=== PATIENT | male | born 1965 | race Caucasian/White ===

== ENCOUNTER → 2017-10-13 | Outpatient (CLI) | payer BC ==
--- NOTE | 2017-10-13 10:36 | CT ---
EXAMINATION TYPE: CT brain wo/w con DATE OF EXAM: 10/13/2017 COMPARISON: NONE HISTORY: Fourth trochlear nerve palsy CT DLP: 2180.8 mGycm, Automated exposure control for dose reduction was used. CONTRAST: Patient injected with 100 mL of Isovue 300. CT of the brain is performed utilizing 3 mm thick sections through the posterior fossa and 3 mm thick sections through the remaining calvarium. Study is performed within 24 hours of arrival to the hospital. No abnormal hyperdensity is present to suggest an acute intracranial hemorrhage. No mass lesion is evident. No acute infarcts are evident. Ventricles and sulci are appropriate for the patient age. No abnormal enhancement is evident. Paranasal sinuses and mastoid air cells within the [id number] are clear. IMPRESSIONS: 1. Normal pre and postcontrast CT brain.
== END | disposition home or self-care (01) ==
LOC: RADCTMAIN 07:20
PROVIDERS: ATTEND Ophthalmology
DX: H49.12 Fourth [trochlear] nerve palsy, left eye (principal); H53.2 Diplopia
CPT/HCPCS: 70470; Q9967